=== PATIENT | female | born 1965 | race American Indian/Alaskan Native ===

== ENCOUNTER 2016-08-03 19:50 | Emergency (ER) | payer SELFPAY ==
[2016-08-03 21:49] LABS: Basophils % (Auto) 0.9 % (0.0-1.8); Eosinophils % (Auto) 3.7 % (0.0-4.3); Hematocrit 31.9 % (30.3-42.9); Hemoglobin 10.4 gm/dl (10.1-14.3); Mean Corpuscular HGB Conc 32 % (30-34); Mean Corpuscular Volume 75 fl (79-97); Platelet Count 503 K/mm3 (140-440); Red Blood Count 4.24 M/mm3 (3.65-5.03); Red Cell Distribution Width 16.2 % (13.2-15.2); White Blood Count 6.7 K/mm3 (4.5-11.0)
[2016-08-03 21:51] LABS: Mean Corpuscular Hemoglobin 24 pg (28-32)
[2016-08-03 22:01] LABS: Alanine Aminotransferase 31 units/L (7-56); Albumin/Globulin Ratio 0.9 %; Alkaline Phosphatase 91 units/L (35-129); Anion Gap 18 mmol/L; Bilirubin,Total < 0.20 mg/dL (0.1-1.2); Blood Urea Nitrogen 14 mg/dL (7-17); Carbon Dioxide 27 mmol/L (22-30); Chloride 97.7 mmol/L (98-107); Glucose 99 mg/dL (65-100); Lipase 48 units/L (13-60); Potassium 3.4 mmol/L (3.6-5.0); Sodium 139 mmol/L (137-145); Total Protein 8.3 g/dL (6.3-8.2)
[2016-08-04 00:16] LABS: Bilirubin,Urine NEG (Negative); Blood,Urine LG (Negative); Ketones,Urine NEG (Negative); Leukocyte Esterase,Urine NEG (Negative); Mucus,Urine FEW /HPF; Nitrite,Urine NEG (Negative); Protein,Urine <15 mg/dL mg/dL (Negative); Urobilinogen,Urine < 2.0 mg/dL (<2.0)
[2016-08-04] MEDS ORDERED: NACL 0.9% 1000 ML 1,000 ML IV ONE (03:29)
[2016-08-04 03:58] VITALS: BP 128/77
--- NOTE | 2016-08-04 04:45 | Ultrasound Report ---
FINAL REPORT PROCEDURE: US TRANSVAGINAL TECHNIQUE: Real-time transabdominal sonography in multiple planes of the pelvis was performed. The pelvic structures were not optimally visualized. Transvaginal sonography was then performed to better evaluate the structures and/or abnormalities described below with image documentation. Grayscale, color flow Doppler imaging and velocity spectral waveform analysis of the ovaries was employed (duplex imaging). CPT 28684, 87410, and 13971 HISTORY: pelvic pain COMPARISON: No prior studies are available for comparison. FINDINGS: UTERUS Size: 9 x 6.7 x 8.7 cm. Endometrial thickness: 4 mm. Orientation: anteverted. Cervix: Normal. Fibroids/masses: There are fibroids identified within the myometrium. Two largest fibroids are within the fundus of the uterus and measure 4.2 and 3.6 centimeters respectfully.. RIGHT Ovary: 2.6 x 1.1 x 1.3 cm. Appearance: Normal. Doppler images: Normal spectral waveforms and color flow. The systolic and diastolic velocities are within normal limits. LEFT Ovary: Not visualized on this study Pelvic fluid: None. Other: None. IMPRESSION: The uterus is slightly enlarged and has fibroid formation. The right ovary has a normal appearance. The left ovary is not visualized.
--- NOTE | 2016-08-04 04:46 | Ultrasound Report ---
FINAL REPORT PROCEDURE: Pelvic ultrasound transabdominal and transvaginal TECHNIQUE: Real-time transabdominal sonography in multiple planes of the pelvis was performed. The pelvic structures were not optimally visualized. Transvaginal sonography was then performed to better evaluate the structures and/or abnormalities described below with image documentation. Grayscale, color flow Doppler imaging and velocity spectral waveform analysis of the ovaries was employed (duplex imaging). CPT 40565, 32719, and 75600 HISTORY: pelvic pain COMPARISON: No prior studies are available for comparison. FINDINGS: UTERUS Size: 9 x 6.7 x 8.7 cm. Endometrial thickness: 4 mm. Orientation: anteverted. Cervix: Normal. Fibroids/masses: There are fibroids identified within the myometrium. Two largest fibroids are within the fundus of the uterus and measure 4.2 and 3.6 centimeters respectfully.. RIGHT Ovary: 2.6 x 1.1 x 1.3 cm. Appearance: Normal. Doppler images: Normal spectral waveforms and color flow. The systolic and diastolic velocities are within normal limits. LEFT Ovary: Not visualized on this study Pelvic fluid: None. Other: None. IMPRESSION: The uterus is slightly enlarged and has fibroid formation. The right ovary has a normal appearance. The left ovary is not visualized.
--- NOTE | 2016-08-04 04:57 | Emergency Department Report ---
HPI - General Chief Complaint: Abdominal Pain Time Seen by Provider: 08/04/16 03:03 - HPI HPI: This is a 50-year-old -[place] female who presents to the emergency department with a complaint of a 2 week history of vaginal bleeding and some more recent lower abdominal and/or pelvic discomfort. Patient also has been feeling weak. She is also concerned with the bleeding as she has noticed some blood clots. The lower abdominal and pelvic discomfort as a cramping sensation. She does not have a primary care physician or SHUTTLE REPAIRER. She did not take anything for symptoms prior to presentation. She has a past medical history of hypertension, HIV and neuropathy. No recent travel or sick contacts at home. She denies any back pain, dysuria, vaginal discharge, chest pain, fever or diaphoresis. ED Past Medical Hx - Past Medical History Previous Medical History?: Yes Hx Hypertension: Yes Additional medical history: hiv, Neuropathy - Social History Smoking Status: Current Some Day Smoker - Medications Home Medications: Home Medications Medication Instructions Recorded Confirmed Last Taken Type ALPRAZolam [Xanax] 0.5 mg PO BID PRN 11/03/12 11/03/12 Unknown History Efavirenz/Emtricitab/Tenofovir 1 each PO QDAY 11/03/12 11/03/12 Unknown History [Atripla Tablet] Lisinopril/Hydrochlorothiazide 11/03/12 11/03/12 Unknown History [Zestoretic 20-12.5 mg] medroxyPROGESTERone ACETATE 10 mg PO QDAY #10 tablet 11/03/12 Unknown Rx [Provera] traMADol [Ultram] 50 mg PO Q6HR PRN #10 tablet 08/04/16 Unknown Rx ED Review of Systems ROS: Stated complaint: CRAMPING, WEAK BODY, Other details as noted in HPI Comment: All other systems reviewed and negative Constitutional: weakness. denies: chills, fever Eyes: denies: eye pain, eye discharge, vision change ENT: denies: ear pain, throat pain Respiratory: denies: cough, shortness of breath, wheezing Cardiovascular: denies: chest pain, palpitations Gastrointestinal: abdominal pain. denies: vomiting Genitourinary: other (vaginal bleeding). denies: dysuria, discharge Musculoskeletal: denies: back pain, joint swelling, arthralgia Skin: denies: rash, lesions Neurological: denies: numbness, paresthesias Physical Exam - Physical Exam Vital Signs: Vital Signs 08/03/16 08/04/16 08/04/16 20:53 03:05 03:58 Temperature 98.9 F 98 F Pulse Rate 95 H 102 H Respiratory 20 18 Rate Blood Pressure 139/92 Blood Pressure 145/82 128/77 [Left] O2 Sat by Pulse 98 99 Oximetry Physical Exam: GENERAL: The patient is well-developed well-nourished. HEENT: Normocephalic. Atraumatic. Extraocular motions are intact. Patient has moist mucous membranes. Pupils equal reactive to light bilaterally. NECK: Supple. Trachea is midline. CHEST/LUNGS: Clear to auscultation. There is no respiratory distress noted. HEART/CARDIOVASCULAR: Regular. There is no tachycardia. There is no gallop rub or murmur. ABDOMEN: Abdomen is soft. There is mild tenderness to palpation to the lower portion of the abdomen and pelvis. No guarding or rebound tenderness. Patient has normal bowel sounds. There is no abdominal distention. SKIN: There is no rash. There is no edema. There is no diaphoresis. NEURO: The patient is awake, alert, and oriented. The patient is cooperative. The patient has no focal neurologic deficits. The patient has normal speech. MUSCULOSKELETAL: There is no tenderness or deformity. There is no limitation range of motion. There is no evidence of acute injury. Muscle strength 5 out of 5 upper and lower extremities bilaterally. Cap refill less than 2 seconds. : deferred ED Course Vital Signs 08/03/16 08/04/16 08/04/16 20:53 03:05 03:58 Temperature 98.9 F 98 F Pulse Rate 95 H 102 H Respiratory 20 18 Rate Blood Pressure 139/92 Blood Pressure 145/82 128/77 [Left] O2 Sat by Pulse 98 99 Oximetry ED Medical Decision Making - Lab Data Result diagrams: 08/03/16 21:26 08/03/16 21:26 - EKG Data -: EKG Interpreted by Me EKG shows normal: sinus rhythm, axis, intervals, QRS complexes, ST-T waves ( nonspecific ST-T waves) Rate: normal - EKG Data When compared to previous EKG there are: previous EKG unavailable Interpretation: nonspecific ST-T wave jenni - Radiology Data Radiology results: report reviewed, image reviewed interpreted by me: Abdominal x-ray shows a moderate amount of stool throughout the colon. There are a few nonspecific air-fluid levels. No obvious signs of obstruction. Transvaginal ultrasound shows that the uterus is slightly enlarged and has a fibroid formation. The right ovary has a normal appearance. Left ovary is not visualized. - Medical Decision Making 50-year-old female presents to the emergency department with a 2 week history of vaginal bleeding has been going on since her menstrual cycle started. Over the past few days she has been having some pelvic and/or lower abdominal cramping. She also complains of some nonspecific complaints of fatigue, weakness. EKG does not show any signs of ST elevation AL, ischemia or dysrhythmia. Despite the vaginal bleeding, there is no significant anemia. There is no leukocytosis, electrolyte abnormalities, renal insufficiency, glucose abnormalities. Her belly labs are normal including bilirubin, lipase and LFTs. She has a normal thyroid function. An abdominal x-ray was done that shows a large amount of stool throughout the colon and some nonspecific bowel gas but otherwise no signs of obstruction. A pelvic/transvaginal ultrasound was done that did not show any signs of torsion but do show 2 fibroids measuring about 4 cm each causing some enlargement of the uterus. This very well could be the cause of both her bleeding and her cramping pains. She was given some pain medication and referrals for SHUTTLE REPAIRER. She will return to the ER with any worsening of her symptoms or any acute distress. - Differential Diagnosis fibroids, UTI, diverticulitis, ovarian cyst, dysfunctional uterine bleeding Critical Care Time: No Critical care attestation.: If time is entered above; I have spent that time in minutes in the direct care of this critically ill patient, excluding procedure time. ED Disposition Clinical Impression: Abnormal uterine bleeding Fibroid Qualifiers: Uterine leiomyoma location: unspecified location Qualified Code(s): D25.9 - Leiomyoma of uterus, unspecified Disposition: DC-01 TO HOME OR SELFCARE Is pt being admited?: No Condition: Stable Instructions: Abdominal Pain (ED) Additional Instructions: Please follow-up with an SHUTTLE REPAIRER regarding your fibroids and abnormal uterine bleeding. I have also given you referrals for primary care physicians. Return to the emergency department with any worsening of your symptoms or any acute distress. Prescriptions: traMADol [Ultram] 50 mg PO Q6HR PRN #10 tablet PRN Reason: Pain Referrals: PRIMARY CARE, [Primary Care Provider] - 3-5 Days [facility] [Outside] - 3-5 Days [facility] [Outside] - 3-5 Days [facility] [Outside] - 3-5 Days Time of Disposition: 05:45
--- NOTE | 2016-08-04 09:47 | XRay Report ---
ABDOMEN, 2 views: History: Abdominal pain, vaginal bleeding. No comparison. There is a large amount of stool throughout the length of the colon. There is no evidence for dilated bowel, fluid levels, free air or pathologic calcifications. The organ shadows are unremarkable. Normal bony structures. The lung bases are clear. IMPRESSION: Constipation.
== END 2016-08-04 06:21 | disposition home or self-care (01) ==
LOC: ED 19:50
DX: N93.8 Other specified abnormal uterine and vaginal bleeding (principal); D25.9 Leiomyoma of uterus, unspecified; F17.200 Nicotine dependence, unspecified, uncomplicated; I10 Essential (primary) hypertension; Z88.5 Allergy status to narcotic agent; G62.9 Polyneuropathy, unspecified
CPT/HCPCS: 36415; 74020; 76830; 80053; 81001; 83690; 84443; 85025; 86850; 86900; 86901; 93005; 93010; 93975; 96360; 96361; 99284; J7030